=== PATIENT | female | born 1990 | race Caucasian/White ===

== ENCOUNTER 2017-11-11 19:41 | Emergency (ER) | payer SELFPAY ==
[~2017-11-11] VITALS: Ht 180.3 cm; Wt 64.9 kg
[~2017-11-11 19:41] MED LIST: GABA-585 PO
[2017-11-11] MEDS ORDERED: IV NORMAL SALINE 1000ML BAG 1,000 ML IV SCH (20:29)
[2017-11-11] MEDS ORDERED: fentaNYL PF VIAL 100 MCG/2 ML VIAL IV ONE (20:30)
[2017-11-11] MEDS ORDERED: diphenhydrAMINE 50 MG/ML VIAL IVP ONE (20:30)
[2017-11-11] MEDS ORDERED: PROCHLORPERAZINE 10 MG/2 ML VIAL. IV ONE (20:30)
[2017-11-11 20:44] LABS: BASO % 1 % (0-3); EOS % 1 % (0-3); HEMATOCRIT 40.6 % (36.0-47.0); HEMOGLOBIN 13.6 g/dL (12.0-15.5); LYMPH # 2.8 x10^3/uL (1.0-4.8); LYMPH % 33 % (24-48); MEAN CORPUSCULAR HEMOGLOBIN 31 pg (25-35); MEAN CORPUSCULAR HGB CONC 33 g/dL (31-37); MEAN CORPUSCULAR VOLUME 93 fL (79-100); MONO % 8 % (0-9); NEUT % 57 % (31-73); PLATELET COUNT 261 x10^3/uL (140-400); RED BLOOD COUNT 4.35 x10^6/uL (3.50-5.40); RED CELL DISTRIBUTION WIDTH 13.1 % (11.5-14.5); WHITE BLOOD COUNT 8.5 x10^3/uL (4.0-11.0)
[2017-11-11 20:46] LABS: BILIRUBIN,URINE NEGATIVE (NEG); GLUCOSE,URINE NEGATIVE (NEG); NITRITE,URINE NEGATIVE (NEG); PROTEIN,URINE NEGATIVE (NEG-TRACE)
[2017-11-11 20:54] LABS: BARBITURATES NEG (NEG); BENZODIAZEPINES NEG (NEG); CANNABINOIDS NEG (NEG); COCAINE NEG (NEG); METHADONE NEG (NEG); OPIATES NEG (NEG); PHENCYCLIDINE NEG (NEG)
--- NOTE | 2017-11-11 20:54 | RAD ---
RS Compliance Statement: One or more of the following individualized dose reduction techniques were utilized for this examination: 1. Automated exposure control 2. Adjustment of the mA and/or kV according to patient size 3. Use of iterative reconstruction technique CT head without contrast 11/11/2017 8:29 PM INDICATION: Severe headache with history of intracranial hemorrhage. COMPARISON: CT head September 21, 2015 TECHNIQUE: Multiple axial CT images of the head were obtained from skull base through the vertex without intravenous contrast. FINDINGS: Head: Ventricles, sulci and basal cisterns are within normal limits. There is no hydrocephalus. Mercer-white matter differentiation is normal. There is no acute intracranial hemorrhage. There is no mass, mass effect or midline shift. Posterior fossa is normal in appearance. Calcification noted in the anterior left thalamus, possibly secondary to remote hemorrhage. Visualized portions of the orbits are normal. Paranasal sinuses are well aerated. Mastoid air cells are well aerated. Scalp and calvaria are normal. IMPRESSION: No acute intracranial hemorrhage. Electronically signed by: Ermelinda Templeton MD (11/11/2017 8:51 PM) [facility]
[2017-11-11 20:56] LABS: CALCIUM 8.3 mg/dL (8.5-10.1); CREATININE 0.8 mg/dL (0.6-1.0); GFR 85.4; POTASSIUM 3.7 mmol/L (3.5-5.1)
[2017-11-11 20:59] LABS: BACTERIA,URINE FEW /HPF (0-FEW); RBC,URINE 0 /HPF (0-2); SQUAMOUS EPITHELIAL CELL,UR MANY /LPF; WBC,URINE RARE /HPF (0-4)
[2017-11-11 21:01] LABS: ALBUMIN 3.6 g/dL (3.4-5.0); ALBUMIN/GLOBULIN RATIO 1.2 (1.0-1.7); MAGNESIUM 1.9 mg/dL (1.8-2.4); TOTAL BILIRUBIN 0.1 mg/dL (0.2-1.0); TOTAL PROTEIN 6.7 g/dL (6.4-8.2)
[2017-11-11 21:30] VITALS: BP 105/64
--- NOTE | 2017-11-11 21:33 | PHYS DOC ---
Past Medical History Past Medical History: Other Additional Past Medical Histor: HEMORRAGIC HEAD BLEED; Past Surgical History: No Surgical History Alcohol Use: None Drug Use: Methamphetamine Social History Narrative: USED METH WITHIN THE LAST WEEK Adult General Chief Complaint Chief Complaint: NEURO SYMPTOMS/DEFICITS HPI HPI Patient is a 26 year old female who presents with complaint of headache. Patient states that she has been having severe headaches over the past week. Patient also notes that she has been having tingling in her hands. Patient denies any weakness, difficulty with speech or swallowing, or loss of vision with her symptoms. The patient states she is worried because she has history of "intracranial hemorrhage" which was diagnosed in 2014 at this facility. The patient however states that she did not require any surgical intervention at that time nor was she told what the source of the bleeding had been caused from. The patient does admit to use of methamphetamine. Patient stated to me that she has not used methamphetamine" over a week." This is in conflict with the triage summary which states that the patient used methamphetamine 5 days ago and started experiencing symptoms after using. The patient is also notably shaky and anxious during history taking. The patient describes her headache as throbbing and rates it 10 out of 10 currently. Patient has not taken any medications for her symptoms. Review of Systems Review of Systems Constitutional: Denies fever or chills [] Eyes: Denies change in visual acuity, redness, or eye pain [] HENT: Denies nasal congestion or sore throat [] Respiratory: Denies cough or shortness of breath [] Cardiovascular: Denies chest pain or edema[] GI: Denies abdominal pain, nausea, vomiting, bloody stools or diarrhea [] : Denies dysuria or hematuria [] Musculoskeletal: Denies back pain or joint pain [] Integument: Denies rash or skin lesions [] Neurologic: Headache, tingling in hands bilaterally, denies focal weakness [] All other systems were reviewed and found to be within normal limits, except as documented in this note. Current Medications Current Medications Current Medications Medications (Trade) Dose Ordered Sig/Manny Start Time Stop Time Status Last Admin Dose Admin Diphenhydramine HCl (Benadryl) 25 mg 1X ONCE 11/11/17 20:30 11/11/17 20:35 DC 11/11/17 20:54 25 MG Fentanyl Citrate (Fentanyl 2ml Vial) 50 mcg 1X ONCE 11/11/17 20:30 11/11/17 20:35 DC 11/11/17 20:54 50 MCG Prochlorperazine Edisylate (Compazine) 10 mg 1X ONCE 11/11/17 20:30 11/11/17 20:35 DC 11/11/17 20:53 10 MG Sodium Chloride 1,000 ml @ 1,000 mls/hr Q1H 11/11/17 20:29 11/11/17 21:28 11/11/17 20:53 1,000 MLS/HR Allergies Allergies Allergies Coded Allergies Type Severity Reaction Last Updated Verified No Known Drug Allergies 09/21/15 No Physical Exam Physical Exam Constitutional: Alert, afebrile, appears anxious and in mild to moderate discomfort. [] HENT: Normocephalic, atraumatic, bilateral external ears normal, oropharynx moist, no oral exudates, nose normal. [] Eyes: PERRLA, EOMI, conjunctiva normal, no discharge. [] Neck: Normal range of motion, no tenderness, supple, no stridor. [] Cardiovascular:Heart rate regular rhythm, no murmur [] Lungs & Thorax: Bilateral breath sounds clear to auscultation [] Abdomen: Bowel sounds normal, soft, no tenderness, no masses, no pulsatile masses. [] Skin: Warm, dry, no erythema, no rash. [] Back: No tenderness, no CVA tenderness. [] Extremities: No tenderness, no cyanosis, no clubbing, ROM intact, no edema. [] Neurologic: Alert and oriented X 3, normal motor function, normal sensory function, no focal deficits noted. [] Current Patient Data Vital Signs Vital Signs Date Time Temp Pulse Resp B/P (MAP) Pulse Ox O2 Delivery O2 Flow Rate FiO2 11/11/17 20:54 16 94 Room Air 11/11/17 19:50 98.0 100 136/88 (104) 98.0 Lab Values Laboratory Tests Test 11/11/17 19:55 11/11/17 19:57 11/11/17 20:06 Urine Collection Type Unknown Urine Color Yellow Urine Clarity Clear Urine pH 6.0 Urine Specific [place] 1.025 Urine Protein Negative mg/dL (NEG-TRACE) Urine Glucose (UA) Negative mg/dL (NEG) Urine Ketones (Stick) Negative mg/dL (NEG) Urine Blood Negative (NEG) Urine Nitrite Negative (NEG) Urine Bilirubin Negative (NEG) Urine Urobilinogen Dipstick 1.0 mg/dL (0.2 mg/dL) Urine Leukocyte Esterase Negative (NEG) Urine RBC 0 /HPF (0-2) Urine WBC Rare /HPF (0-4) Urine Squamous Epithelial Cells Many /LPF Urine Bacteria Few /HPF (0-FEW) Urine Mucus Mod /LPF Urine Opiates Screen Neg (NEG) Urine Methadone Screen Neg (NEG) Urine Barbiturates Neg (NEG) Urine Phencyclidine Screen Neg (NEG) Urine Amphetamine/Methamphetamine Pos (NEG) Urine Benzodiazepines Screen Neg (NEG) Urine Cocaine Screen Neg (NEG) Urine Cannabinoids Screen Neg (NEG) Urine Ethyl Alcohol Neg (NEG) POC Urine HCG, Qualitative Hcg negative (Negative) White Blood Count 8.5 x10^3/uL (4.0-11.0) Red Blood Count 4.35 x10^6/uL (3.50-5.40) Hemoglobin 13.6 g/dL (12.0-15.5) Hematocrit 40.6 % (36.0-47.0) Mean Corpuscular Volume 93 fL (79-100) Mean Corpuscular Hemoglobin 31 pg (25-35) Mean Corpuscular Hemoglobin Concent 33 g/dL (31-37) Red Cell Distribution Width 13.1 % (11.5-14.5) Platelet Count 261 x10^3/uL (140-400) Neutrophils (%) (Auto) 57 % (31-73) Lymphocytes (%) (Auto) 33 % (24-48) Monocytes (%) (Auto) 8 % (0-9) Eosinophils (%) (Auto) 1 % (0-3) Basophils (%) (Auto) 1 % (0-3) Neutrophils # (Auto) 4.8 x10^3uL (1.8-7.7) Lymphocytes # (Auto) 2.8 x10^3/uL (1.0-4.8) Monocytes # (Auto) 0.7 x10^3/uL (0.0-1.1) Eosinophils # (Auto) 0.1 x10^3/uL (0.0-0.7) Basophils # (Auto) 0.0 x10^3/uL (0.0-0.2) Sodium Level 142 mmol/L (136-145) Potassium Level 3.7 mmol/L (3.5-5.1) Chloride Level 105 mmol/L (98-107) Carbon Dioxide Level 27 mmol/L (21-32) Anion Gap 10 (6-14) Blood Urea Nitrogen 12 mg/dL (7-20) Creatinine 0.8 mg/dL (0.6-1.0) Estimated GFR (Cockcroft-Gault) 85.4 BUN/Creatinine Ratio 15 (6-20) Glucose Level 87 mg/dL (70-99) Calcium Level 8.3 mg/dL (8.5-10.1) L Magnesium Level 1.9 mg/dL (1.8-2.4) Total Bilirubin 0.1 mg/dL (0.2-1.0) L Aspartate Amino Transferase (AST) 23 U/L (15-37) Alanine Aminotransferase (ALT) 39 U/L (14-59) Alkaline Phosphatase 84 U/L (46-116) Total Protein 6.7 g/dL (6.4-8.2) Albumin 3.6 g/dL (3.4-5.0) Albumin/Globulin Ratio 1.2 (1.0-1.7) Laboratory Tests 11/11/17 20:06 Laboratory Tests 11/11/17 20:06 EKG EKG Interpreted by me: Heart rate 84, sinus rhythm, normal intervals, normal axis, no acute ST/T-wave abnormalities present[] Radiology/Procedures Radiology/Procedures [facility] [address] [place], [place] [id number] IMAGING REPORT Signed PATIENT: RAF JACOBS ACCOUNT: [id number] : 1990 LOCATION: ER AGE: 26 SEX: F EXAM STATUS: REG ER ORD. PHYSICIAN: SANDY SAN MD REASON: headache, history of intracranial hemorrhage PROCEDURE: CT HEAD WO CONTRAST PQRS Compliance Statement: One or more of the following individualized dose reduction techniques were utilized for this examination: 1. Automated exposure control 2. Adjustment of the mA and/or kV according to patient size 3. Use of iterative reconstruction technique CT head without contrast 11/11/2017 8:29 PM INDICATION: Severe headache with history of intracranial hemorrhage. COMPARISON: CT head September 21, 2015 TECHNIQUE: Multiple axial CT images of the head were obtained from skull base through the vertex without intravenous contrast. FINDINGS: Head: Ventricles, sulci and basal cisterns are within normal limits. There is no hydrocephalus. Mercer-white matter differentiation is normal. There is no acute intracranial hemorrhage. There is no mass, mass effect or midline shift. Posterior fossa is normal in appearance. Calcification noted in the anterior left thalamus, possibly secondary to remote hemorrhage. Visualized portions of the orbits are normal. Paranasal sinuses are well aerated. Mastoid air cells are well aerated. Scalp and calvaria are normal. IMPRESSION: No acute intracranial hemorrhage. Electronically signed by: Evan Zhang MD (11/11/2017 8:51 PM) [facility] DICTATED and SIGNED BY: EVAN ZHANG MD DATE: 11/11/172042 CC: SANDY SAN MD; NO PCP ~ [] Course & Med Decision Making Course & Med Decision Making Pertinent Labs and Imaging studies reviewed. (See chart for details) On chart review from patient's previous visit, the patient had a hyperdensity noted on her CT scan that was followed with a brain MRI which showed no acute abnormality or recent hemorrhage. The patient's CT scan today appears stable compared to previous. I explained to the patient that her imaging showed no evidence of acute intracranial hemorrhage. The patient's lab work however does test positive for methamphetamine. Given the patient's exam, I do believe that the patient has used methamphetamine much more recently than she has stated in the history. When confronted with this, the patient did acknowledge that she has used methamphetamine within the last 24 hours. The patient was counseled on discontinuing methamphetamine use and was provided with information for outpatient services. Recommended follow-up with primary doctor in the next 5-7 days and return to emergency department for any worsening symptoms. Patient voiced understanding and in agreement with treatment plan. Dragon Disclaimer Dragon Disclaimer This electronic medical record was generated, in whole or in part, using a voice recognition dictation system. Departure Departure Impression: Primary Impression: Methamphetamine abuse Disposition: 01 HOME, SELF-CARE Condition: IMPROVED Referrals: NO PCP (PCP) Patient Instructions: Methamphetamine Abuse, Complications Additional Instructions: Follow-up with your primary doctor in 5-7 days for reevaluation. Return to emergency department for any worsening symptoms. SANDY SAN MD Nov 11, 2017 21:33
--- NOTE | 2017-11-12 02:33 | EKG ---
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
== END 2017-11-11 21:50 | disposition home or self-care (01) ==
LOC: ER 19:41
DX: F15.10 Other stimulant abuse, uncomplicated (principal); R51 Headache; R20.2 Paresthesia of skin
CPT/HCPCS: 36415; 70450; 80053; 80307; 81001; 81025; 83735; 85025; 93005; 96374; 96375; 99285; J0780; J1200; J3010; J7030; G0479

== ENCOUNTER 2022-01-02 23:18 | Emergency (ER) | payer SELFPAY ==
[~2022-01-02] VITALS: Ht 172.7 cm; Wt 68.0 kg
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
[2022-01-03] MEDS ORDERED: METR-34 PO (00:29)
[2022-01-03] MEDS ORDERED: DOXY100C3 PO (00:29)
[2022-01-03] MEDS ORDERED: DOXYCYCLINE HYCLATE 100 MG TABLET PO ONE (00:30)
[2022-01-03] MEDS ORDERED: cefTRIAXone IM 500 MG VIAL. IM ONE (00:30)
[2022-01-03 01:03] LABS: BILIRUBIN,URINE SMALL (NEG); CLARITY,URINE CLEAR; COLOR,URINE YELLOW; NITRITE,URINE NEGATIVE (NEG); PROTEIN,URINE NEGATIVE (NEG-TRACE)
[2022-01-03 01:04] VITALS: BP 109/73
[2022-01-03 01:12] LABS: BACTERIA,URINE 0 /HPF (0-FEW); RBC,URINE OCC /HPF (0-2); WBC,URINE OCC /HPF (0-4)
--- NOTE | 2022-01-03 01:20 | RAD ---
Transabdominal ultrasound pelvis HISTORY: Pelvic pain and discharge and IUD Transvaginal ultrasound pelvis HISTORY: Pelvic pain and discharge Transvaginal sonographic examination of the pelvis was performed and multiple static images are obtai nicole. The uterus measures 6.6 x 4.9 x 3.2 cm. This IUD which appears well seated. The ovaries appear normal normal blood flow. The right ovary measures 3.3 x 3.0 0.9 cm for the left o vary measures 2.3 x 2.7 x 1.2 cm. IMPRESSION: 1. IUD well positioned in the uterus. 2. No acute findings. Electronically signed by: Freddie Barrett III, MD (01/03/2022 1:18 AM) [facility]
[2022-01-05 18:09] LABS: GC PROBE Negative (Negative)
== END 2022-01-03 01:37 | disposition home or self-care (01) ==
LOC: ER 23:18
DX: N76.0 Acute vaginitis (principal); B96.89 Other specified bacterial agents as the cause of diseases classified elsewhere; F17.200 Nicotine dependence, unspecified, uncomplicated
CPT/HCPCS: 76830; 76856; 81001; 81025; 87491; 87591; 96372; 99284; J0696; Q0111